=== PATIENT | male | born 2000 | race Hispanic/Latino ===

== ENCOUNTER 2025-04-04 13:58 | Emergency (ER) | payer SELFPAY ==
[~2025-04-04] VITALS: Ht 188 cm; Wt 95.3 kg
[2025-04-04] MEDS: KETOROLAC TROMETHAMINE 30 MG/ML VIAL IV STA (16:37)
[2025-04-04] MEDS: DEXAMETHASONE SOD PHOS INJ 4 MG/ML SDV IV ONE (16:41)
[2025-04-04] MEDS: HYDROCODONE/APAP 5MG-325MG TAB PO ONE (16:43)
[2025-04-04] MEDS ORDERED: IOPAMIDOL 370 MG/ML 100 ML INFUS..BTL INJ ONE (17:06)
[2025-04-04] MEDS ORDERED: KETOROLAC TROME10 MG PO (19:24)
[2025-04-04] MEDS ORDERED: PREDNISONE50 MG PO (19:24)
[2025-04-04] MEDS ORDERED: ACETAMINOPHEN-1 EAC4 PO (19:27)
[2025-04-04 19:34] VITALS: PULSE 94; RESP 18; TEMP 98.2
[2025-04-04 19:42] VITALS: BP 134/82; PULSE 94; RESP 18; TEMP 98.2; O2SAT 97
== END 2025-04-04 19:35 | disposition home or self-care (01) ==
LOC: FSED 14:38
DX: J02.9 Acute pharyngitis, unspecified (principal); R10.12 Left upper quadrant pain
CPT/HCPCS: 70491; 74176; 80048; 80076; 81003; 83518 ×2; 85025; 86308; 99284; J1100; J1885; Q9967